=== PATIENT | male | born 1960 | race Caucasian/White ===

== ENCOUNTER 2017-05-16 15:14 | Emergency (ER) | payer BC ==
[~2017-05-16] VITALS: Ht 172.7 cm; Wt 77.3 kg
[2017-05-16 19:37] VITALS: BP 113/97
== END 2017-05-16 19:38 | disposition home or self-care (01) ==
LOC: EME 15:14
PROC: 0HQMXZZ Repair Right Foot Skin, External Approach (ICD-10-PCS; principal; 2017-05-16)
DX: S91.111A Laceration without foreign body of right great toe without damage to nail, initial encounter (principal); W27.8XXA Contact with other nonpowered hand tool, initial encounter; B35.1 Tinea unguium
CPT/HCPCS: 99281; 99284